=== PATIENT | female | born 2005 ===

== ENCOUNTER 2023-05-28 13:27 | Emergency (ER) | payer MEDICAID, SELFPAY ==
[2023-05-28 13:54] VITALS: BP 116/62; PULSE 85; RESP 16; TEMP 37; O2SAT 98; BMI 21.5
--- NOTE | 2023-05-28 13:56 | ED_ITS ---
HPI - Nausea/Vomiting/Diarrhea General Chief complaint: Nausea/Vomiting/Diarrhea Stated complaint: feels like going to have seizure Time Seen by Provider: 05/28/23 15:50 Source: patient Mode of arrival: ambulatory Limitations: no limitations History of Present Illness HPI Narrative: Patient is a 18-year-old female history of seizures presenting to the emergency department with complaint of generalized abdominal pain, nausea, vomiting since this morning. Patient admits to drinking alcohol last night, more than usual. Reports emesis is nonbloody, nonbilious. Denies any diarrhea or constipation. Denies any back or flank pain. Denies any urinary frequency, dysuria, hematuria or other urinary symptoms. States has been unable to tolerate any p.o. fluids today. Denies fevers. MD elicited complaint: nausea, vomiting and abdominal pain Pertinent past history: other (Seizures) Onset (ago): hour(s) Description of vomiting: watery Associated nausea: Yes Associated abdominal pain: Yes Location of pain: diffuse Severity: mild Quality: dull Exacerbating factors: eating Relieving factors: none Associated symptoms: denies other symptoms Treatment prior to arrival: none Related Data Previous Rx's Medication Instructions Recorded ondansetron 4 mg disintegrating 4 mg PO Q8H PRN nausea and 05/28/23 tablet vomiting #10 tabs Allergies Allergy/AdvReac Type Severity Reaction Status Date / Time No Known Allergies Allergy Verified 05/28/23 13:54 Review of Systems 2 Review of Systems: As per HPI. Yes all other systems are reviewed and are negative Constitutional: Constitutional: Reports as per HPI Gastrointestinal: Gastrointestinal: Reports nausea PMFSH Social History Social History Alcohol intake: current Smoked in Last 30 Days: No Use of substances other than those prescribed or required for medical reasons: Yes Substance Use Type: Marijuana Substance Use Frequency: Daily Last Used Substance: Days (ago) Advance Directives: No Advance Directives Information Provided: No Physical Exam 2 Vital Signs: Vital Signs: Last Vital Signs Temp 98.2 F 05/28/23 15:48 Pulse 69 05/28/23 15:48 Resp 16 05/28/23 15:48 BP 102/58 L 05/28/23 15:48 Pulse Ox 97 05/28/23 15:48 O2 Del Method Room Air 05/28/23 15:48 BMI result Body Mass Index 21.5 Vital signs have been reviewed and appear to be correct. Blood pressure low. Heart rate normal. Respiratory rate normal. Temperature normal. Oxygen saturation normal. Const: General: cooperative, healthy appearing and no acute distress O rientation/consciousness: oriented to person, oriented to place, oriented to time and patient oriented x3 Limitations: no limitations HEENT: Head: Yes normocephalic and Yes atraumatic Ears: external ears normal General nose exam: Normal external nose present Face and sinus: Yes face symmetric Mouth: oropharynx normal and moist mucous membranes Throat: Yes uvula midline Eyes: Pupils: Equal, round and reactive pupils present Neck: Neck: Yes normal visual inspection and Yes supple Resp: Effort & Inspection: normal respiratory effort and able to speak in complete sentences Auscultation: clear to auscultation bilaterally Cardio: Rate: regular rate Rhythm: regular rhythm Heart sounds: S1 normal heart sound present and S2 normal heart sound present GI: Inspection: Yes normal to inspection Palpation (GI): Soft to palpation and nontender Auscultation: normoactive bowel sounds : General: Yes no CVA tenderness Back/Spine/Pelvis: Back: no CVA tenderness Skin: General skin exam: elasticity normal and turgor normal Neuro: General: oriented to person, oriented to place, oriented to time, patient oriented x3, moves all extremities, no focal motor deficits and CN's II- XI intact bilaterally Cranial nerves: Yes Equal, round and reactive pupils present Cognition (Neuro): normal cognition Extrem: General: Yes full ROM, Yes no pedal edema and Yes no calf tenderness Psych: Mental Status: mental status grossly normal Affect: normal affect Thought process: Normal thought process present Course Course Course Narrative: RME - 18 yo female with history of seizures presents to the ER for evaluation of N/V, diffuse abdominal pain, dizziness, weakness after a night of heavy drinking last night. Unable to tolerate PO. LMP ended yesterday. Plan: labs, IVF, zofran, reassess Medications Administered Discontinued Medications Generic Name Dose Route Start Last Admin Trade Name Freq PRN Reason Stop Dose Admin Sodium Chloride 1,000 mls @ 999 mls/hr 05/28/23 14:00 05/28/23 17:25 Ns IVCONT 05/28/23 15:00 Infused .Q1H1M NANCY Infusion Sodium Chloride 1,000 mls @ 999 mls/hr 05/28/23 16:00 05/28/23 17:30 Ns IV 05/28/23 17:00 Infused .Q1H1M NANCY Infusion Ondansetron HCl 4 mg 05/28/23 13:54 05/28/23 16:11 Ondansetron Hcl 4 Mg/2 Ml Vial IVPUSH 05/28/23 13:55 4 mg ONCE ONE Administration Medical Decision Making Medical Decision Making [facility] Narrative: Patient is a 18-year-old female history of seizures presenting to the emergency department with complaint of generalized abdominal pain, nausea, vomiting since this morning. On exam patient is awake, A+Ox3, VS WNL, afebrile, normal neurological exam without focal deficits, physical exam findings as above. Given reported symptoms and physical exam findings, initial differential includes alcohol induced gastritis, GERD, PUD, dehydration, electrolyte abnormality. Less likely cholecystitis, pancreatitis. Labs notable for normal white count, no anemia, no electrolyte abnormalities. Unlikely ACS. No evidence of infection on UA. Will order Zofran and IV fluids, reassess, d/c home when able to tolerate PO fluids. Patient reports decreased nausea and abdominal pain after IV fluids and Zofran. Patient able to tolerate noemi tiana and crackers in the ED. Will discharge home with prescription for Zofran, advised and to insure adequate rest, adequate fluid intake. Instructed patient to follow-up with PCP this week. Return precautions discussed at bedside. Patient verbalized understanding of and agreement with plan. Differential Diagnosis Differential Diagnoses: The differential diagnosis associated with the presentation includes As per MDM. Lab Data [facility] Lab Attestation statement: I reviewed the patient's lab results. As per MDM. 05/28/23 14:12 05/28/23 14:12 Labs: Lab Results 05/28/23 05/28/23 Range/Units 14:09 14:12 WBC 8.6 (4.8-10.8) X10*3/uL RBC 4.49 (4.20-5.50) X10*6/uL Hgb 14.2 (12.0-16.0) g/dl Hct 40.3 (37.0-47.0) % MCV 89.8 (80.0-98.0) fL MCH 31.6 (27.0-33.0) pg MCHC 35.2 H (31.0-35.0) g/dl RDW 12.8 (11.0-16.0) % Plt Count 342 (160-400) X10*3/uL MPV 9.2 L (9.4-12.3) fL Immature Gran % (Auto) 0.2 (0.0-0.4) % Neut % (Auto) 76.6 H (45-73) % Lymph % (Auto) 17.8 L (20-40) % [place] % (Auto) 4.7 (2-11) % Eos % (Auto) 0.2 (0-4) % Baso % (Auto) 0.5 (0-2) % Lymph # (Auto) 1.5 (1.2-4.9) X10*3/uL [place] # (Auto) 0.4 (0.1-1.2) X10*3/uL Eos # (Auto) 0.0 (0.0-0.4) X10*3/uL Baso # (Auto) 0.0 (0.0-0.2) X10*3/uL Abs Immat Gran (auto) 0.02 (0.00-0.03) X10*3/uL Absolute Neuts (auto) 6.6 (2.0-8.3) x10*3/uL Absolute Nucleated RBC 0.000 (0.0-0.012) X10*3/uL Nucleated RBC % (auto) 0.0 (0.0-0.2) /100WBC Sodium 142 (135-145) mmol/L Potassium 3.7 (3.3-5.1) mmol/L Chloride 108 (96-108) mmol/L Carbon Dioxide 21 L (22-29) mmol/L Anion Gap 17 (12-20) BUN 8 L (9-16) mg/dL Creatinine 0.64 (0.5-1.4) mg/dL Estim Creat Clear Calc 105.7 Estimated GFR > 60 Random Glucose 98 (60-115) mg/dL Calcium 9.9 (8.4-10.2) mg/dL Magnesium 2.1 (1.6-2.6) mg/dL Total Bilirubin 0.3 (0.0-1.0) mg/dL Direct Bilirubin 0.1 (0.0-0.5) mg/dL AST 18 (5-31) U/L ALT 15 (0-31) U/L Alkaline Phosphatase 48 (39-117) U/L Total Protein 7.7 (6.5-8.0) g/dL Albumin 4.9 (3.5-5.0) g/dL Urine Color Yellow Urine Appearance Clear Urine pH >= 9.0 (5.0-9.0) Ur Specific [place] 1.025 (1.005-1.025) Urine Protein 30 (1+) H (Neg-Trace) mg/dL Urine Glucose (UA) Negative (Negative) mg/dL Urine Ketones Trace (Negative) mg/dL Urine Blood Negative (Negative) Urine Nitrite Negative (Negative) Ur Leukocyte Esterase Trace H (Negative) Urine RBC 3-5 H (0-2) /HPF Urine WBC 0-5 (0-5) /HPF Ur Squamous Epith Cells 6-10 (0-2) /HPF Urine Bacteria 1+ (None Seen) Hyaline Casts 0-2 (0-2) /LPF Urine Test NEGATIVE (NEGATIVE) Ethyl Alcohol 19 mg/dL External Record Review External record reviewed: Inpatient record, Office record and Outpatient record Prescription Management I considered prescription management with: Other Discharge Plan Discharge Clinical Impression: Nausea & vomiting Qualifiers: Vomiting type: unspecified Qualified Code(s): R11.2 - Nausea with vomiting, unspecified Patient Disposition: Home, Self-Care Instructions: Acute Nausea and Vomiting (ED) Additional Instructions: You were evaluated in the emergency department today for abdominal pain, nausea and vomiting which is most likely due to irritation of the lining of your stomach from alcohol. Your symptoms improved with medication in the ED. You are being prescribed Zofran (ondansetron) which you can take every 8 hours as needed for nausea. Avoid spicy or acidic foods. Please follow up with your primary care physician within two days. Return to the emergency department if you experience shortness of breath, worsening or uncontrolled abdominal pain, chest pain, light headedness, faiting, persistent nausea and vomiting, bloody vomit or stools, black, tarry stools, or any other concerning symptoms. Prescriptions: New ondansetron 4 mg tablet,disintegrating 4 mg PO Q8H PRN (Reason: nausea and vomiting) Qty: 10 0RF Stand Alone Forms: Work/School Release
[2023-05-28 14:26] LABS: MANUAL DIFF FLAG NO
[2023-05-28 14:39] LABS: Ethanol 19 mg/dL
[2023-05-28 14:39] LABS: Appearance Urine Clear; Color Urine Yellow; Glucose Urine UA Negative (Negative); Leukocyte Esterase Urine Trace (Negative); Nitrite Urine Negative (Negative); PH >= 9.0 (5.0-9.0); Specific Gravity - Urine 1.025 (1.005-1.025); UMIC TRIGGER UACC YES; Urine Blood Negative (Negative); Urine Ketones Trace mg/dL (Negative); Urine Protein 30 (1+) mg/dL (Neg-Trace)
[2023-05-28 14:42] LABS: Basophils Percent Auto 0.5 % (0-2); Eosinophils Percent Auto 0.2 % (0-4); Hematocrit 40.3 % (37.0-47.0); Hemoglobin 14.2 g/dl (12.0-16.0); Imm Gran Abs Auto 0.02 X10*3/uL (0.00-0.03); Imm Gran Pct Auto 0.2 % (0.0-0.4); Lymphocytes Absolute Auto 1.5 X10*3/uL (1.2-4.9); Lymphocytes Percent Auto 17.8 % (20-40); Mean Corpuscular HGB Conc 35.2 g/dl (31.0-35.0); Mean Corpuscular Hemoglobin 31.6 pg (27.0-33.0); Mean Corpuscular Volume 89.8 fL (80.0-98.0); Mean Platelet Volume 9.2 fL (9.4-12.3); Monocytes Absolute Auto 0.4 X10*3/uL (0.1-1.2); Monocytes Percent Auto 4.7 % (2-11); Neutrophils Absolute Auto 6.6 x10*3/uL (2.0-8.3); Neutrophils Percent Auto 76.6 % (45-73); Platelet Count 342 X10*3/uL (160-400); Red Blood Count 4.49 X10*6/uL (4.20-5.50); Red Cell Distribution Width 12.8 % (11.0-16.0); White Blood Count 8.6 X10*3/uL (4.8-10.8)
[2023-05-28 14:43] LABS: Alanine Aminotransferase 15 U/L (0-31); Albumin Level 4.9 g/dL (3.5-5.0); Alkaline Phosphatase 48 U/L (39-117); Anion Gap 17 (12-20); Aspartate Amino Transferase 18 U/L (5-31); Bilirubin Direct 0.1 mg/dL (0.0-0.5); Bilirubin Total 0.3 mg/dL (0.0-1.0); Blood Urea Nitrogen 8 mg/dL (9-16); Calcium 9.9 mg/dL (8.4-10.2); Carbon Dioxide 21 mmol/L (22-29); Chloride 108 mmol/L (96-108); Creatinine Clr Calc Pharmacy 105.7; Estimated Glomerular Filt Rate > 60; Glucose Random 98 mg/dL (60-115); Magnesium 2.1 mg/dL (1.6-2.6); Potassium 3.7 mmol/L (3.3-5.1); Sodium 142 mmol/L (135-145); Total Protein 7.7 g/dL (6.5-8.0)
[2023-05-28 14:44] LABS: WBC Urine 0-5 /HPF (0-5)
[2023-05-28 14:45] LABS: Bacteria Urine 1+ (None Seen); Hyaline Casts Urine 0-2 /LPF (0-2)
[2023-05-28 15:35] LABS: UPreg QC Valid YES; Urine Pregnancy NEGATIVE (NEGATIVE)
[2023-05-28 15:48] VITALS: BP 102/58; PULSE 69; RESP 16; TEMP 36.8; O2SAT 97
[2023-05-28] MEDS: 0.9 % Sodium Chloride 1,000 ML 999 ML IVCONT (16:11)
[2023-05-28] MEDS: ondansetron HCL 4 MG/2 ML VIAL IVPUSH (16:11)
[2023-05-28] MEDS: 0.9 % Sodium Chloride 1,000 ML 999 ML IV (16:30)
== END 2023-05-28 18:52 | disposition home or self-care (01) ==
PROVIDERS: Physician Assistant; Emergency Provider Emergency Medicine; PCP Pediatrics
DX: R11.2 Nausea with vomiting, unspecified (principal); R10.2 Pelvic and perineal pain; R19.7 Diarrhea, unspecified; Z79.899 Other long term (current) drug therapy
CPT/HCPCS: 36415; 80048; 80076; 80307; 81001; 81025; 83735; 85025; 96361; 96374; 99284; J2405

== ENCOUNTER 2023-10-13 14:02 | Emergency (ER) | payer MEDICAID, SELFPAY ==
[2023-10-13 14:22] VITALS: BP 109/55; PULSE 75; RESP 18; TEMP 36.6; O2SAT 99; BMI 22.1
--- NOTE | 2023-10-13 14:23 | ED_ITS ---
HPI - General Adult General Chief complaint: General Medical Stated complaint: gen med Source: patient Mode of arrival: ambulatory Limitations: no limitations History of Present Illness HPI narrative: 18 year old female with no significant pmhx presents to the ED today for evaluation of headache, nausea without vomiting, and light headedness x2-3 weeks. She states that she is currently trying to get . She reports negative test at home however believes this may be a false negative and would like to have another test done in ED. She is currently sexually active with her partner. Does not use control. LMP 09/11/23. Denies headache, vision changes, chest pain, SOB, cough, abd pain, LE pain/ swelling. Denies known sick contacts. Denies recent travel or long car rides. Denies etoh consump tions or ilicit substance use. Related Data Previous Rx's Medication Instructions Recorded ondansetron 4 mg disintegrating 4 mg PO Q8H PRN nausea and 05/28/23 tablet vomiting #10 tabs Allergies Allergy/AdvReac Type Severity Reaction Status Date / Time No Known Allergies Allergy Verified 05/28/23 13:54 Review of Systems Review of Systems: Constitutional: No fever, chills, fatigue, night sweats, weight changes ENT/Mouth: No ear pain, hearing loss, nasal congestion, sinus pain, rhinorrhea, sore throat Eyes: No eye pain, swelling, redness, vision changes, discharge Cardio: No chest pain, palpitations, DEUTSCH, orthopnea, peripheral edema Pulm: No SOB, cough, sputum, wheezing, dyspnea, hemoptysis GI: +nausea, No vomiting, hematemesis, abdominal pain, diarrhea, constipation, hematochezia, melena : No irregular bleeding, dysuria, frequency, urgency, hesitancy, hematuria, flank pain, urinary flow changes, urinary incontinence or retention MSK: No back pain, neck pain, joint pain, myalgias Skin: No lesions, rashes Neuro: No weakness, numbness, paresthesias, LOC, dizziness, +headache, +lightheaded All other systems reviewed and are negative. [facility] Past Medical History Attestation statement: The following information was validated with the patient. Source: old records reviewed and nursing notes reviewed Social History Social History Alcohol intake: current Substance Use Type: Marijuana Advance Directives: No Advance Directives Information Provided: No Physical Exam ED Vital Signs: Vital Signs - 24 hr 10/13/23 14:22 Temperature 98 F Pulse Rate 75 Respiratory Rate 18 Blood Pressure 109/55 L Pulse Oximetry 99 Oxygen Delivery Method Room Air BMI result Body Mass Index 22.1 Vital signs stable, afebrile Const General: cooperative, healthy appearing, comfortable and no acute distress Nutritional Appearance: average body habitus Orientation/consciousness: patient oriented x3 Limitations: no limitations HENMT Head: Yes normal to inspection, Yes No palpable skull fracture present, Yes normocephalic, Yes atraumatic, No scalp tenderness and No Temporal artery tenderness present Ears: hearing grossly normal bilaterally, external ears normal, TM normal on the left, EAC's normal, mastoids normal and no periauricular adenopathy Eyes General: appearance normal, both eyes and all related structures Conjunctivae: conjunctivae normal Sclerae: sclerae normal Pupils: Equal, round and reactive pupils present Neck Neck: Yes normal visual inspection, Yes no lymphadenopathy and Yes no meningeal signs Resp Effort & Inspection: normal respiratory effort and able to speak in complete sentences Auscultation: clear to auscultation bilaterally Cardio Rate: regular rate Rhythm: regular rhythm GI Inspection: Yes normal to inspection Palpation (GI): Soft to palpation and nontender General: Yes no CVA tenderness Back/Spine/Pelvis Back: no CVA tenderness Skin General skin exam: no rashes or lesions noted Neuro General: patient oriented x3 and no meningeal signs Cranial nerves: Yes Equal, round and reactive pupils present Gait exam (Neuro): Normal gait present Coordination: [id number] test normal, [id number] test normal and Normal rapid alternating movements of the distal upper extremity present (Neuro) Pupils: Normal pupillary reactivity/response: bilateral Extrem General: Yes normal to inspection and Yes no calf tenderness Course Course Course Narrative: RME:?18 yo here for eval of headache, nausea, light headedness x2-3 weeks. states i think i'm . denies abd pain, cp, or sob. LMP 1/15. Sexually active. Not on control, actively trying to get . test at home negative. labs, urine, U preg ordered. Full HPI, ROS and PE to be performed by the primary ED provider. Reevaluation(s) Reevaluation #1: Patient left the emergency department before myself or any of the other clinicians could review or explain physical exam findings, test results, need or lack there of for additional testing, treatment options, or a treatment plan. Medical Decision Making Medical Decision Making [facility] Narrative: 18 year old female with no significant pmhx presents to the ED today for evaluation of headache, nausea without vomiting, and light headedness x2-3 weeks. Vital signs stable. Afebrile. Nontoxic appearing and in NAD. AOX3. Exam nonfocal. PERRLA. Cerebellum intact. Abd soft, ND/NT, no rebound or guarding. No calf tenderness. Clinical suspicion for viral syndrome, headache, migraine, , anemia, electrolyte imbalance, dehydration. Lower suspicion for vertigo, gastroenteritis, gastritis, GERD. Unlikely ICH, CVA/TIA, cerebellar stroke, dissection, PE. Viral swabs, basic labs, UA, and urine preg ordered. Plan for review and re-evaluation. Differential Diagnosis Differential Diagnoses: The differential diagnosis associated with the presentation includes as above. Admission/Observation as above. Prescription Management I considered prescription management with: Other (antiemetic) Social Determinants Patient?s care significantly limited by Social Determinants of Health including: Other Social Determinant of Health Discharge Plan Discharge Clinical Impression: Headache, Nausea without vomiting, Light-headedness Patient Disposition: Left W/O Completing Treatment Prescriptions: No Action ondansetron 4 mg tablet,disintegrating 4 mg PO Q8H PRN (Reason: nausea and vomiting) Qty: 10 0RF Discharge Date/Time: 10/13/23 17:18
--- NOTE | 2023-10-13 15:10 | MHC.EDTECH ---
no answer for labs at 1510
--- NOTE | 2023-10-13 16:01 | MHC.EDTECH ---
no answer for labs at 1600
== END 2023-10-13 17:18 | disposition left against medical advice (07) ==
PROVIDERS: Emergency Provider Emergency Medicine; PCP Pediatrics
DX: R51.9 Headache, unspecified (principal); R11.2 Nausea with vomiting, unspecified; R42 Dizziness and giddiness
CPT/HCPCS: 99281

== ENCOUNTER 2023-10-18 01:27 | Emergency (ER) | payer MEDICAID, SELFPAY ==
[2023-10-18 01:39] VITALS: BP 135/63; PULSE 98; RESP 18; TEMP 36.3; O2SAT 100; BMI 23.2
[2023-10-18 02:16] LABS: IDNOW Serial# 6674DD1D; Strep A Nucleic Acid Negative (Negative)
[2023-10-18 02:26] LABS: Influenza A PCR NEGATIVE (Negative); Influenza B PCR NEGATIVE (Negative); Resp Syncy Virus RNA Qual PCR NEGATIVE (Negative); SARS COV2 PCR INHOUSE NEGATIVE (Negative)
--- NOTE | 2023-10-18 07:55 | ED.GENADULT ---
HPI - General Adult General Chief complaint: Upper Respiratory Symptoms Stated complaint: flu like/fever Time Seen by Provider: 10/18/23 07:40 Source: patient and family (significant other) Mode of arrival: ambulatory Limitations: no limitations History of Present Illness HPI narrative: 18 year old female presents to the ED for evaluation of subjective fevers, headache, sore throat, and dry cough x2 days. No documented fever at home however feels like she is burning up . Taking Nyquil at home without relief. Last dose last night. Denies chills, dizziness, sputum production, odynophagia, inaility to control oral secretions. Denies known sick contacts. Related Data Previous Rx's Medication Instructions Recorded ondansetron 4 mg disintegrating 4 mg PO Q8H PRN nausea and 05/28/23 tablet vomiting #10 tabs benzocaine 15 mg-menthol 2.6 mg 1 herman mucous membrane Q2-4H PRN 10/18/23 lozenges (Cepacol Sore Throat sore throat #16 ea (benzocaine-menthol)) penicillin V potassium 500 mg 500 mg PO BID 10 days #20 tabs 10/18/23 tablet Allergies Allergy/AdvReac Type Severity Reaction Status Date / Time No Known Allergies Allergy Verified 05/28/23 13:54 Review of Systems Review of Systems: Constitutional: No fever, chills, fatigue, night sweats, weight changes ENT/Mouth: No ear pain, hearing loss, nasal congestion, sinus pain, rhinorrhea, +sore throat Eyes: No eye pain, swelling, redness, vision changes, discharge Cardio: No chest pain, palpitations, DEUTSCH, orthopnea, peripheral edema Pulm: No SOB, +cough, No sputum, wheezing, dyspnea, hemoptysis GI: No nausea, vomiting, hematemesis, abdominal pain, diarrhea, constipation, hematochezia, melena : No irregular bleeding, dysuria, frequency, urgency, hesitancy, hematuria, flank pain, urinary flow changes, urinary incontinence or retention MSK: No back pain, neck pain, joint pain, myalgias Skin: No lesions, rashes Neuro: No weakness, numbness, paresthesias, LOC, dizziness, +headache Psych: No anxiety/panic, depression, SI/HI, AH/VH All other systems reviewed and are negative. [facility] Past Medical History Attestation statement: The following information was validated with the patient. Source: old records reviewed and nursing notes reviewed Social History Social History Alcohol intake: current Substance Use Type: Marijuana Advance Directives: No Advance Directives Information Provided: No Physical Exam ED Vital Signs: Vital Signs - 24 hr 10/18/23 01:39 Temperature 97.3 F Pulse Rate 98 Respiratory Rate 18 Blood Pressure 135/63 Pulse Oximetry 100 Oxygen Delivery Method Room Air BMI result Body Mass Index 23.2 Vital signs stable, afebrile Const General: cooperative, healthy appearing, comfortable, no acute distress, alert and awake Orientation/consciousness: patient oriented x3 Limitations: no limitations HENMT Other: + posterior oropharynx erythematous, no edema, uvula is midline, bilateral tonsillar exudates, no peritonsillar masses, controlling secretions and speaking in complete sentences, no muffled voice, no stridor. Head: Yes normal to inspection, Yes normocephalic and Yes atraumatic Ears: hearing grossly normal bilaterally, external ears normal, TM's normal bilaterally, EAC's normal, mastoids normal and no periauricular adenopathy General nose exam: Normal external nose present and No nasal discharge present Face and sinus: Yes normal facial exam and Yes sinuses nontender Eyes General: appearance normal, both eyes and all related structures Conjunctivae: conjunctivae normal Sclerae: sclerae normal Pupils: Equal, round and reactive pupils present Neck Other: + no cervical, submandibular or submental LAD. Neck: Yes normal visual inspection and Yes full ROM Resp Effort & Inspection: normal respiratory effort and able to speak in complete sentences Auscultation: clear to auscultation bilaterally, no rales, no rhonchi and no wheezes Cardio Rate: regular rate Rhythm: regular rhythm GI Inspection: Yes normal to inspection Palpation (GI): Soft to palpation, nontender and no splenomegaly Skin General skin exam: no rashes or lesions noted Neuro General: patient oriented x3 and gait normal Cranial nerves: Yes Equal, round and reactive pupils present Extrem General: Yes normal to inspection Course Course Course Narrative: 0802-- Patient has tested negative for covid, flu, rsv, and strep throat. Exam is consistent with strep throat and thus patient will be treated with outpatient abx. She has received viscous lido for sore throat. She is also requesting urine test and tells me she is 2 weeks late for her menstrual period > urine sent. 929-- Urine negative. Penicillin and Cepacol throat lozenges sent to pharmacy to treat strep throat. Discussed workup results and treatment with patient. Patient has remained stable throughout ED visit today. Discussed worrisome signs and symptoms and when to return to the ED. All questions answered at this time. Patient is agreeable with disposition and stable for discharge. Medications Administered Discontinued Medications Generic Name Dose Route Start Last Admin Trade Name Frenick PRN Reason Stop Dose Admin Lidocaine HCl 15 ml 10/18/23 08:01 10/18/23 08:39 Lidocaine Hcl Viscous 2 % 15 Ml Solution MUCOUS MEM 10/18/23 08:02 15 ml ONCE ONE Administration Medical Decision Making Medical Decision Making [facility] Narrative: 18 year old female presents to the ED for evaluation of subjective fevers, headache, sore throat, and dry cough x2 days. Vital signs stable, afebrile. Patient is nontoxic appearing in no acute distress. Bilateral EACs and TMs WNL. Posterior oropharynx erythematous without edema. Bilateral tonsillar exudates without edema. Uvula midline. No peritonsillar masses controlling secretions and speaking in complete sentences. No muffled voice. No stridor. Lungs CTA bilaterally without wheezes or rhonchi. Abdomen soft ND/NT. Clinical concern for viral syndrome, strep throat. Unlikely mono, [employer], retropharyngeal abscess, epiglottitis, pneumonia, acute respiratory distress. Plan for viral and strep swabs. Differential Diagnosis Differential Diagnoses: The differential diagnosis associated with the presentation includes as above. Admission/Observation Not indicated Lab Data [facility] Lab Attestation statement: I reviewed the patient's lab results. as above Labs: Lab Results 10/18/23 10/18/23 10/18/23 Range/Units 01:43 01:44 08:33 Urine Test NEGATIVE (NEGATIVE) Influenza Type A (PCR) NEGATIVE (Negative) Influenza Type B (PCR) NEGATIVE (Negative) RSV RNA Qual (PCR) NEGATIVE (Negative) SARS-CoV-2 RNA (RT-PCR) NEGATIVE (Negative) S. pyogenes GrpA JULI Negative (Negative) External Record Review External record reviewed: Inpatient record Prescription Management I considered prescription management with: Pain Medication and Antibiotic Social Determinants Patient?s care significantly limited by Social Determinants of Health including: Other Social Determinant of Health Critical Care Time Critical Care Time Critical Care Time: No Discharge Plan Discharge Clinical Impression: Acute streptococcal pharyngitis Patient Disposition: Home, Self-Care Instructions: Pharyngitis (ED), Strep Throat (ED) Additional Instructions: You were seen in the ED today for evaluation of sore throat. Your urine was negative for . You tested negative for covid, flu, and RSV. Although you tested negative for strep throat, your physical exam findings are consistent with strep throat and thus you will be treated. Penicillin is an antibiotic that has been sent to your pharmacy. Take this twice daily for the next 10 days to treat strep throat. Do not stop taking these antibiotics early or miss any doses as this may cause infection to return or worsen. Cepacol throat lozenges have been sent to your pharmacy to help with throat pain. You may also purchase [id number] chloraseptic spray to numb your throat. Take Tylenol and ibuprofen as needed for body aches or fevers. Make sure to change your toothbrush as this contains bacteria. Strep throat is contagious. If anyone else in your household is exhibiting symptoms, please advise them to come to the ED, urgent care, or to see their primary care provider. Follow up with your primary care provider as needed. Return to the emergency department if your symptoms persist or worsen despite treatment or if you have difficulty swallowing, opening your mouth, or develop a rash. In the case of emergency, call 911.? Prescriptions: New penicillin V potassium 500 mg tablet 500 mg PO BID 10 Days Qty: 20 0RF Cepacol Sore Throat (gale-men) 15-2.6 mg lozenge 1 herman mucous membrane Q2-4H PRN (Reason: sore throat) Qty: 16 0RF No Action ondansetron 4 mg tablet,disintegrating 4 mg PO Q8H PRN (Reason: nausea and vomiting) Qty: 10 0RF Referrals: Anais Green MD [Primary Care Provider] - Stand Alone Forms: Work/School Release Interventions: ED Discharge Assessment Last Done: 10/18/23 09:36 Discharge Date/Time: 10/18/23 09:41
[2023-10-18] MEDS: Lidocaine HCl Viscous 2 % 15 ML SOLUTION MUCOUS MEM (08:39)
[2023-10-18 08:45] LABS: UPreg QC Valid YES; Urine Pregnancy NEGATIVE (NEGATIVE)
== END 2023-10-18 09:41 | disposition home or self-care (01) ==
PROVIDERS: Physician Assistant Medical; Emergency Provider Emergency Medicine; PCP Internal Medicine
DX: J02.0 Streptococcal pharyngitis (principal); R50.9 Fever, unspecified; Z11.52 Encounter for screening for COVID-19; Z20.828 Contact with and (suspected) exposure to other viral communicable diseases
CPT/HCPCS: 0241U; 81025; 87651; 99282; 99283

== ENCOUNTER 2025-08-09 12:40 | Emergency (ER) | payer MEDICAID, SELFPAY ==
[2025-08-09 13:00] VITALS: BP 121/59; PULSE 107; RESP 16; TEMP 37.1; O2SAT 95; BMI 23.7
--- NOTE | 2025-08-09 13:11 | ED_ITS ---
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 on her tonsils noted approximately 2 minutes prior to arrival. She denies tongue involvement. She denies difficulty swallowing. She endorses a fever yesterday, reported as ?about 103? ?F per on-campus health staff, but is afebrile today. She reports a non-productive cough. She denies vomiting or diarrhea. She has taken acetaminophen; no other medications. She was tested on c amp[facility] for strep, COVID-19, and influenza?all results were negative. - Constitutional: Fever yesterday, afebrile today. - HEENT: Sore throat, reports white spots on tonsils; denies dysphagia. - Respiratory: Cough present. - Gastrointestinal: Denies vomiting and diarrhea. Related Data Previous Rx's ?Medication ?Instructions ?Recorded ondansetron 4 mg disintegrating 4 mg PO Q8H PRN nausea and 05/28/23 tablet vomiting #10 tabs benzocaine 15 mg-menthol 2.6 mg 1 herman mucous membrane Q2-4H PRN 10/18/23 lozenges (Cepacol Sore Throat sore throat #16 ea (benzocaine-menthol)) penicillin V potassium 500 mg 500 mg PO BID 10 days #2 0 tabs 10/18/23 tablet ibuprofen 600 mg tablet 600 mg PO Q8H PRN pain #30 t abs 08/09/25 lidocaine HCl 2 % mucosal solution 5 ml mucous membran e QID PRN pain 08/09/25 (Lidocaine Viscous) #100 mL Allergies Allergy/AdvReac Type Severity Reaction Status Date / Time No Known Allergies Allergy Verified 08/09/25 13:03 Review of Systems Review of Systems: Yes all other systems are reviewed and are negative [facility] Past Medical History Attestation statement: The following information was validated with the patient. Source: nursing notes reviewed Social History Social History Alcohol intake: current Substance Use Type: Marijuana Advance Directives: No Advance Directives Information Provided: No Do you have a plan to hurt others: No Plan Physical Exam Exam: Exam: General: Appears in no acute distress, appears well nourished body habitus is normal, appears stated age. No septic or ill-appearing. Vitals reviewed normal, PMH/Social and Surgical hx reviewed including allergies and current medications. Head: Normocephalic, no abnormal lesions noted. Eyes: EOMI. no sclera icteris, conjunctiva and sclera clear ENMT: moist oral mucosa, no edematous nasal turbinates, erythema, or purulent d/c noted. Oral cavity and oropharynx without white exudates; tonsils mildly erythematous, no swelling. No evidence of gonococcal pharyngitis. Tympanic membranes and external auditory canals normal; no otitis media or externa.Uvula is midline no trismus. Neck: trachea midline, no lymphadenopathy. No nuchal rigidity. Cardiovascular: peripheral perfusion normal, S1 and S2 present, no M/R/G. RRR Respiratory: no respiratory distress, lungs clear to auscultation b/l, re spirations full and symmetric. No flail chest, chest wall tenderness or crepitus noted. Speaking in full smooth sentences. Abdomen: nondistended Extremities: Warm and appear well perfused. Moving extremities without difficulty. Psych: Cooperative, calm. Neuro: Alert and orientated. No obvious focal deficits. Vital Signs: Vital Signs: Last Vital Signs Temp 98.7 F 08/09/25 13:18 Pulse 107 H 08/09/25 13:18 Resp 16 08/09/25 13:18 BP 121/59 L 08/09/25 13:18 Pulse Ox 95 08/09/25 13:18 O2 Del Method Room Air 08/09/25 13:18 BMI result Body Mass Index 23.7 Medical Decision Making Medical Decision Making MDM Narrative: Gretchen is a college student presenting with acute sore throat, reported white spots on tonsils, fever yesterday (afebrile today), mild tonsillar erythema without exudate, non-productive cough, clear lungs, no ear infection, no cer vical lymphadenopathy, no GI symptoms, and limited access to medications on campus. She has negative rapid strep, COVID-19, and influenza tests. Differential Diagnosis Considered: - Bacterial pharyngitis (including streptococcal): Ruled out by negative rapid strep test and absence of exudate, significant tonsillar swelling, or cervical lymphadenopathy. No evidence of otitis media or pneumonia on exam. - Viral pharyngitis/URI: Most likely given the constellation of symptoms (sore throat, cough, fever, mild tonsillar erythema), negative strep/COVID/flu tests, and current outbreak context on campus. Physical exam and history are consistent with viral etiology. - Mononucleosis: Considered due to sore throat and fever, but less likely given lack of posterior cervical lymphadenopathy, tonsillar exudate, or significant fatigue. No splenomegaly or other classic findings. - Gonococcal pharyngitis: Considered, but ruled out by absence of risk factors, lack of exudate, and normal oropharyngeal exam. - Dental infection (including wisdom teeth): Patient inquired about wisdom teeth as a cause; ruled out by absence of dental pain, swelling, or evidence of tooth infection on exam. The diagnosis of viral pharyngitis/URI is supported by negative rapid strep, COVID-19, and influenza tests, mild tonsillar erythema without exudate, clear lungs, and the presence of a viral outbreak among classmates. IDSA guidelines recommend no further testing or antibiotics for adults with negative rapid strep and clinical features of viral pharyngitis. Citation: IDSA guidelines recommend no further testing or antibiotics for adults with negative rapid strep, supporting diagnosis of viral pharyngitis. Management Decisions: - Supportive care recommended: hydration, popsicles, rest, and reassurance that eating is not necessary if throat pain is significant. - Medication options discussed: patient has acetaminophen available; ibuprofen recommended for additional symptomatic relief, but patient has limited access on campus. - Prescription for viscous lidocaine offered for throat discomfort if symptoms worsen, in accordance with FDA labeling and clinical guidelines. Citation: FDA labeling and clinical guidelines support viscous lidocaine for symptomatic relief in viral pharyngitis, with specific dosing and safety precautions. - Reassurance provided regarding wisdom teeth; no evidence of dental infection or involvement in current illness. Risk Assessment and Follow-Up: Patient is low risk for complications based on current exam and history. Advised to return for evaluation if symptoms worsen, new findings develop (such as persistent fever, difficulty swallowing, shortness of breath, or evidence of bacterial infection), or if unable to maintain hydration. Assessment & Plan Young female with sore throat and cough following negative rapid strep/COVID/flu testing. Physical exam without exudative tonsillitis; findings most consistent with uncomplicated viral upper respiratory infection/pharyngitis. Citation: IDSA guidelines recommend no further testing or antibiotics for adults with negative rapid strep, supporting diagnosis of viral pharyngitis. Problem #1: Viral Pharyngitis / Upper Respiratory Infection Assessment: Likely viral etiology given negative strep/COVID/flu tests, mild tonsillar erythema without exudate, clear lungs, and systemic viral outbreak on campus. Citation: IDSA guidelines support withholding antibiotics and further testing in adults with negative rapid strep and clinical features of viral pharyngitis. Plan: - Supportive care: encourage hydration, popsicles, rest; eating not necessary if throat pain. - Medication: Discussed use of ibuprofen for symptomatic relief; patient has acetaminophen available. Patient expressed limited access to medications (specifically ibuprofen/Motrin) on campus. - Viscous lidocaine prescription offered for throat discomfort if symptoms worsen. Citation: FDA labeling and clinical guidelines support viscous lidocaine for symptomatic relief in viral pharyngitis, with specific dosing and safety precautions. No additional active problems discussed today. Patient inquired about wisdom teeth possibly causing illness; provider reassured that wisdom teeth are not the cause of current symptoms unless there is a tooth infection, which is not present. Differential Diagnosis Differential Diagnoses: The differential diagnosis associated with the presentation includes See [facility] Admission/Observation Consideration of admission/observation: Escalation of care including admission/observation considered Lab Data [facility] Lab Attestation statement: I reviewed the patient's lab results. External Record Review External record reviewed: Outpatient record Tests considered The following testing was considered but not selected: already done testing outpatient Prescription Management I considered prescription management with: Pain Medication Social Determinants Patient?s care significantly limited by Social Determinants of Health including: Other Social Determinant of Health Discharge Plan Discharge Clinical Impression: Upper respiratory infection Patient Disposition: Home, Self-Care Instructions: Upper Respiratory Infection (ED) Additional Instructions: You have an upper respiratory infection. This is an infection involving the nose, throat and larynx, almost always caused by a virus. The infection rarely spreads or leads to serious long-term problems. Since the infection is caused by a virus, antibiotics are not helpful. It may help your symptoms to use a decongestant nose spray to open the nasal passages and permit drainage. Afrin nasal spray (or a similar decongestant spray) can be used twice a day for up to four days. You may develop tolerance to it if used longer than this. You may take Tylenol 650mg orally every 6 hours or Motrin (advil) 600mg orally every 6 hours as needed. Please take the motrin with food. Over the counter Flonase nasal spray can help with any congestion/sinus pressure. With time this can also help alleviate ear pressure that occurs as a result of the congestion. Over the counter Codell Mist Nasal Saline can be used a few times daily to help irrigate the nose/sinuses to help with congestion. Warm tea with honey can help the throat and cough. You may trial use of an over the counter decongestant such as Sudafed. Return or get rechecked by your doctor if you get high or prolonged fever (over 101 F orally), worsening pain, swelling over your face or eyes, earache, shortness of breath or chest pain, severe headache, stiff neck, vomiting, or a rash. If you are not improving after 10 days of illness you should be re-evaluate. Respiratory tract infections are usually spread by coughing; the virus lands on surfaces and is then picked up on the hands and carried to the nose or mouth - so good hand washing is important to avoid spreading the virus. Prescriptions: New lidocaine HCl [Lidocaine Viscous] 2 % solution 5 ml mucous membrane QID PRN (Reason: pain) Qty: 100 0RF Rx Instructions: swish and swallow ibuprofen 600 mg tablet 600 mg PO Q8H PRN (Reason: pain) Qty: 30 0RF No Action ondansetron 4 mg tablet,disintegrating 4 mg PO Q8H PRN (Reason: nausea and vomiting) Qty: 10 0RF penicillin V potassium 500 mg tablet 500 mg PO BID 10 Days Qty: 20 0RF Cepacol Sore Throat (gale-men) 15-2.6 mg lozenge 1 herman mucous membrane Q2-4H PRN (Reason: sore throat) Qty: 16 0RF Stand Alone Forms: Work/School Release Interventions: ED Discharge Assessment Last Done: 08/09/25 13:18 Discharge Date/Time: 08/09/25 13:19 Print Language: Polish
--- OUTSIDE RECORDS SUMMARY | 2025-08-09 13:12 | XMS_ITS | Clinical Summary ---
Author Organization [facility] Address [address] [place] [address] Care Team Providers Care Shelving Supervisor Name Role Phone Pcp, No MD Primary Care Provider Unavailabl e Allergies No known active allergies Medications No known medications Encounters Date Type Department Care Team Description 07/01/2025 9:40 AM EST - 07/01/2025 10:57 AM EST Emergency [facility] Department of Emergency Services [address] [place] [address] Angelica Marie MD Laceration of left eyebrow, initial encounter (Primary Dx) Discharge Disposition: Home or Self Care from Last 3 Months Social History Tobacco Use Types Packs/Day Years Used Date Smoking Tobacco: Never Smokeless Tobacco: Never Tobacco Cessation:Counseling Given: Not Answered Comments No Sex and Gender Information Value Date Recorded Sex Assigned at Not on file Legal Sex Female 9:36 AM EST Gender Identity Not on file Sexual Orientation Not on file Last Filed Vital Signs Vital Sign Reading Time Taken Comments Blood Pressure 125/80 07/01/2025 10:53 AM EST Pulse 65 07/01/2025 10:53 AM EST Temperature 36.6 C (97.9 F) 07/01/2025 9:40 AM EST Respiratory Rate 18 07/01/2025 10:53 AM EST Oxygen Saturation 97% 07/01/2025 10:53 AM EST Inhaled Oxygen Concentration - - Weight 54.4 kg (120 lb) 07/01/2025 9:40 AM EST Height 152.4 cm (5') 07/01/2025 9:40 AM EST Body Mass Index 23.44 07/01/2025 9:40 AM EST Plan of Treatment Health Maintenance Due Date Last Done Comments HIV Screening 2003 Chlamydia Screening 2019 Hepatitis C Screening 2021 Pap Smear 02/01/2024 DTaP,Tdap,and Td Vaccines (7 - Td or Tdap) 03/18/2025 03/18/2015, 05/01/2008, 07/14/2004, Additional history exists COVID-19 Vaccine (3 - season) 2025 09/26/2023, 07/12/2022 Influenza Vaccine (#1) 2025 07/07/2004 Zoster Vaccines (1 of 2) 2053 Hepatitis B Vaccines Completed 02/01/2005, 2003, 2003, Additional history exists MMR Vaccines Completed 05/01/2008, 07/07/2004 Hepatitis A Vaccines Completed 08/17/2012, 04/15/20 11 HPV Vaccines Completed 03/28/2016, 10/28, 03/18/2015 Pneumococcal Vaccine: At-Risk and Pediatric Patients (0 to 49 Years) Aged Out 03/28/2016, 07/07/2004, 2003, Additional history exists No longer eligible based on patient's age to complete this topic Meningococcal Vaccine Completed 06/25/2019, 016 Procedures Procedure Name Priority Date/Time Associated Diagnosis Comments HC SIMPLE REPAIR F/E/E/N/L/M 2.5CM/< (PRO FEE) Routine 07/01/2025 10:46 AM EST HC SIMPLE REPAIR F/E/E/N/L/M 2.5CM/< Routine 07/01/2025 10:46 AM EST from Last 3 Months Results * HC SIMPLE REPAIR F/E/E/N/L/M 2.5CM/<, HC SIMPLE REPAIR F/E/E/N/L/M 2.5CM/< (PRO FEE) (07/01/2025 10:46 AM EST) Narrative Angelica Marie MD - 07/01/2025 10:46 AM EST Angelica Marie MD 07/01/2025 3:29 PM Laceration Repair Performed by: Marcio Giraldo Jr., PA-C Authorized by: Angelica Marie MD Consent: Consent obtained: Verbal Consent given by: Patient Risks discussed: Infection, poor cosmetic result, poor wound healing and pain Anesthesia (see MAR for exact dosages): Anesthesia method: Topical application Topical anesthetic: LET Laceration details: Location: Face Face location: L eyebrow Length (cm): 2.5 Repair type: Repair type: Simple Exploration: Hemostasis achieved with: LET and direct pressure Treatment: Amount of cleaning: Standard Irrigation solution: Sterile saline Irrigation volume: 250 Irrigation method: Pressure wash Skin repair: Repair method: Sutures Suture size: 5-0 Suture material: Fast-absorbing gut Suture technique: Simple interrupted Number of sutures: 3 Approximation: Approximation: Close Post-procedure details: Dressing: Open (no dressing) Patient tolerance of procedure: Tolerated well, no immediate complications us Angelica Marie MD IN CLINIC/BEDSIDE ORDERABLES Final Result from Last 3 Months Care Teams Shelving Supervisor Relationship Specialty Start Date End Date Dalila Thompson MD [address] [place] [address] PCP - General Internal Medicine 07/01/25
[2025-08-09 13:18] VITALS: BP 121/59; PULSE 107; RESP 16; TEMP 37.1; O2SAT 95
== END 2025-08-09 13:19 | disposition home or self-care (01) ==
PROVIDERS: Emergency Provider Emergency Medicine
DX: J06.9 Acute upper respiratory infection, unspecified (principal); R51.9 Headache, unspecified; R13.10 Dysphagia, unspecified
CPT/HCPCS: 99282